=== PATIENT | male | born 1955 | race Caucasian/White ===

== ENCOUNTER 2017-06-10 23:18 | Emergency (ER) | payer BC ==
[2013-09-08 08:21] VITALS: BMI 25.8
[~2017-06-10 23:18] MED LIST: BAYER CHEWABLE81 MG PO; COZAAR100 MG PO; PROSCAR5 MG PO
[2017-06-11 00:20] LABS: BASOPHILS 0.4 % (0-2); EOSINOPHILS 3.9 % (0-7); HEMATOCRIT 41.5 % (42.0-54.0); HEMOGLOBIN 14.2 g/dL (13.5-17.5); IMMATURE GRANULOCYTES 0.5 % (0-5); LYMPHOCYTES 14.9 % (15-50); MCH 31.1 pg (26.0-34.0); MCHC 34.2 g/dL (31.0-37.0); MCV 90.8 fL (80.0-100.0); MONOCYTES 8.6 % (2-11); NEUTROPHILS 71.7 % (40-80); PLATELET COUNT 278 10x3/uL (130-400); RBC 4.57 10x6/uL (4.20-6.10); RDW 13.2 % (11.5-14.5); WBC 9.8 10x3/uL (4.8-10.8)
[2017-06-11 00:45] LABS: ALBUMIN 3.6 g/dL (3.4-5.0); ALKALINE PHOSPHATASE 65 U/L (46-116); ALT (SGPT) 21 U/L (10-68); CALC OSMOLALITY 284 mosm/kg (275-300); CALCIUM 9.9 mg/dL (8.5-10.1); CHLORIDE - SERUM 106 mmol/L (98-107); CREATININE - SERUM 0.8 mg/dL (0.6-1.3); GLUCOSE 104 mg/dL (74-106); POTASSIUM - SERUM 3.9 mmol/L (3.5-5.1); PROTEIN - SERUM 7.1 g/dL (6.4-8.2); SODIUM 142 mmol/L (136-145); UREA NITROGEN 18 mg/dL (7-18); eGFR NON AFRICAN AMERICAN > 90 mL/min (90-120)
[2017-06-11 00:49] LABS: TROPONIN-I < 0.017 ng/mL (0.000-0.060)
[2017-06-11 01:25] LABS: APPEARANCE CLEAR (CLEAR); BILIRUBIN NEGATIVE (NEGATIVE); COLOR YELLOW (YELLOW); GLUCOSE NEGATIVE (NEGATIVE); KETONE NEGATIVE (NEGATIVE); NITRITE NEGATIVE (NEGATIVE); PROTEIN NEGATIVE (NEGATIVE); UROBILINOGEN NORMAL (NORMAL)
[2017-06-11 01:41] LABS: CKMB 0.8 U/L (0.0-3.6); CREATINE KINASE 54 UL (21-232)
== END 2017-06-11 04:10 | disposition home or self-care (01) ==
LOC: D.ER 23:18
PROVIDERS: Family Medicine
DX: R42 Dizziness and giddiness (principal); R07.9 Chest pain, unspecified; I45.10 Unspecified right bundle-branch block

== ENCOUNTER 2018-03-04 17:13 | Observation (INO) | payer BC ==
[~2018-03-04] VITALS: Ht 175.3 cm; Wt 73.6 kg
--- NOTE | ~2018-03-04 | MORECARE ---
CASE MANAGEMENT DISCHARGE SUMMARY PATIENT: MELITON COCHRAN JR UNIT: [id number] ADM DATE: 03/04/18 AGE: 62 : 55 SEX: M ROOM/BED: D.3513 AUTHOR: MUSTAPHA LEAL PHYSICIAN: REFERRING PHYSICIAN: TRACY STILES MD DATE OF SERVICE: 03/06/18 Discharge Plan Patient Name: MELITON COCHRAN [facility] [facility] 1955 Planned Disposition: Home Anticipated Discharge Date: 03/05/18 Discharge Date: 03/05/2018 Expected LOS: 1 Initial Reviewer: [id number] Initial Review Date: 03/06/2018 Generated: 03/06/18 11:11 am Patient Name: MELITON COCHRAN Page [id number] at 1011 All edits/amendments must be made on the electronic document DICTATION DATE: 03/06/18 1010 HOME COMPANION: LEEROY 03/06/18 1010 RPT#: [id number] DC DATE:03/05/18 STATUS: DIS IN [facility] [address] [place] [address] END OF REPORT
--- NOTE | ~2018-03-04 | DS ---
PATIENT:MELITON ARMIJO JR :55 MEDICAL RECORD: [id number] DISCHARGE SUMMARY ADMISSION DATE: 03/04/18 DISCHARGE DATE: 03/05/18 DIAGNOSES: 1. Paroxysmal atrial fibrillation. 2. Hypertension. Mr. Armijo presents with atrial fibrillation. His troponins are normal. EKG is with no ST-T changes. He converted spontaneously to sinus rhythm. He was given sotalol. Previously, he was on losartan for blood pressure. The sotalol was discontinued. He was placed on diltiazem 240 mg a day for heart rate and blood pressure control. He will follow up with [facility] in one month. TRANSINT:[id number] Voice Confirmation ID: [id number] DOCUMENT ID: [id number] TRACY STILES MD CC: [id number] DICTATION DATE: 03/05/18 113 ADVANCED MANUFACTURING ENGINEER: 03/05/182131 DIS IN 03/05/18 [facility] [address] [place] [address]
--- NOTE | ~2018-03-04 | HP ---
PATIENT: MELITON COCHRAN JR MEDICAL RECORD: [id number] ACCOUNT: [id number] LOCATION:[address] : 55 ADMISSION DATE: 03/04/18 PCP: No PCP HISTORY AND PHYSICAL EXAMINATION ADMITTING DIAGNOSES: 1. Paroxysmal atrial fibrillation. 2. Hypertension. HISTORY OF PRESENT ILLNESS: This is a gentleman who presents with palpitations to the Emergency Room and found to be in atrial fibrillation, converted spontaneously to sinus rhythm. He has had 2 other episodes of similar, not any time in the recent past, the last one was approximately a year ago. Each episode he has, lasted for a few hours and this was really no different. He has no chest pain, chest discomfort or shortness of breath with this. PHYSICAL EXAMINATION: GENERAL APPEARANCE: Well-nourished, well-developed, appears stated age. Level of distress, comfortable. PSYCHIATRIC: Mental status, alert, normal affect. Orientation, oriented to time, place and person. EYES: Lids and conjunctiva, noninjected. No discharge, no pallor. ENT: Lips, teeth, gums, normal dentition. Oropharynx, no cyanosis, no pallor. NECK: Carotid arteries, bilateral normal upstroke, no bruits, no thrills. JUGULAR VEINS: No jugular venous pressure or distention. CERVICAL LYMPH NODES: Nontender, nonenlarged. THYROID: Not enlarged. Nontender. No nodules. LUNGS: Respiratory effort, unlabored. CHEST: Normal curvature. No thoracic deformity. No chest wall tenderness. Percussion, resonant. Auscultation, clear. No wheezes, no rales, no rhonchi. CARDIOVASCULAR: Precordial exam, nondisplaced. No heaves or pericardial thrills. Rate and rhythm, regular. Heart sounds, normal S1, normal S2. No S3, no gallop, no rub. Systolic murmur, not heard. Diastolic murmur, not heard. EXTREMITIES: No cyanosis, no edema. Peripheral pulses, full and equal in all extremities, except as noted. No bruits appreciated. ABDOMEN: Soft, nondistended. Normal aorta. No bruit. Nontender. No masses. Liver, nontender, no hepatomegaly. Spleen, nontender, no splenomegaly. MUSCULOSKELETAL: No joint tenderness. No joint swelling. No erythema. NEUROLOGICAL: Normal gait, normal strength, normal tone. SKIN: Warm and dry. OVERALL IMPRESSION: Paroxysmal atrial fibrillation. He is on losartan for blood pressure. He has gotten sotalol. We will most likely discontinue the losartan and change him to diltiazem for blood pressure and the atrial fibrillation. Further workup will be with the stress test as an outpatient. TRANSINT:[id number] Voice Confirmation ID: [id number] DOCUMENT ID: [id number] HISTORY AND PHYSICAL [id number] MELITON COCHRAN JR, JEFFREY MD CC: [id number] DICTATION DATE: 03/05/18 113[address] COMMERCE DIRECTOR: 03/05/18 1144 ADM IN [facility] [address] [place] [id number]
[2018-03-04 17:48] LABS: BASOPHILS 0.5 % (0-2); EOSINOPHILS 4.9 % (0-7); HEMATOCRIT 43.3 % (42.0-54.0); HEMOGLOBIN 15.2 g/dL (13.5-17.5); IMMATURE GRANULOCYTES 0.4 % (0-5); LYMPHOCYTES 20.4 % (15-50); MCH 31.4 pg (26.0-34.0); MCHC 35.1 g/dL (31.0-37.0); MCV 89.5 fL (80.0-100.0); MEAN PLATELET VOLUME 9.1 fL (7.4-10.4); NEUTROPHILS 64.8 % (40-80); PLATELET COUNT 270 10x3/uL (130-400); RBC 4.84 10x6/uL (4.20-6.10); RDW 13.1 % (11.5-14.5); WBC 8.2 10x3/uL (4.8-10.8)
[2018-03-04 17:57] LABS: APTT 32.5 SECONDS (22.8-39.4); INR 0.95 (0.85-1.17); PROTIME 12.2 SECONDS (11.6-15.0)
[2018-03-04 18:02] LABS: ALBUMIN 3.6 g/dL (3.4-5.0); ALKALINE PHOSPHATASE 86 U/L (46-116); ALT (SGPT) 11 U/L (10-68); BILIRUBIN - TOTAL 0.18 mg/dL (0.2-1.3); CALC OSMOLALITY 286 mosm/kg (275-300); CALCIUM 9.9 mg/dL (8.5-10.1); CARBON DIOXIDE 28.1 mmol/L (21.0-32.0); CHLORIDE - SERUM 106 mmol/L (98-107); CREATININE - SERUM 0.7 mg/dL (0.6-1.3); GLUCOSE 101 mg/dL (74-106); POTASSIUM - SERUM 3.7 mmol/L (3.5-5.1); PROTEIN - SERUM 7.4 g/dL (6.4-8.2); SODIUM 143 mmol/L (136-145); UREA NITROGEN 17 mg/dL (7-18); eGFR NON AFRICAN AMERICAN > 90 mL/min (90-120)
[2018-03-04 18:14] LABS: CKMB 0.8 U/L (0.0-3.6); CREATINE KINASE 40 UL (21-232); TROPONIN-I < 0.017 ng/mL (0.000-0.060)
[2018-03-04 20:02] LABS: CREATINE KINASE 40 UL (21-232); TROPONIN-I < 0.017 ng/mL (0.000-0.060)
[2018-03-04] MEDS ORDERED: CALCIUM 600 +1 EAC3 PO (21:52)
[2018-03-04] MEDS ORDERED: PROBIOTIC1 EAC1 PO (21:53)
[2018-03-04] MEDS ORDERED: OMEPRAZOLE20 M1 PO (21:54)
[2018-03-04] MEDS ORDERED: XTANDI40 MG PO (21:54)
[2018-03-04 22:03] VITALS: BP 161/77; Ht 175.3 cm; Wt 73.6 kg
[2018-03-05 01:14] VITALS: BP 161/72
[2018-03-05 01:27] LABS: CKMB 0.6 U/L (0.0-3.6); CREATINE KINASE 30 UL (21-232); TROPONIN-I < 0.017 ng/mL (0.000-0.060)
[2018-03-05 05:42] LABS: HEMATOCRIT 39.8 % (42.0-54.0); HEMOGLOBIN 13.5 g/dL (13.5-17.5); IMMATURE GRANULOCYTES 0.4 % (0-5); LYMPHOCYTES 20.1 % (15-50); MCHC 33.9 g/dL (31.0-37.0); MCV 91.5 fL (80.0-100.0); MEAN PLATELET VOLUME 9.5 fL (7.4-10.4); MONOCYTES 12.4 % (2-11); NEUTROPHILS 59.1 % (40-80); PLATELET COUNT 274 10x3/uL (130-400); RBC 4.35 10x6/uL (4.20-6.10); WBC 7.3 10x3/uL (4.8-10.8)
[2018-03-05 05:54] VITALS: BP 102/63
[2018-03-05 06:36] LABS: ALBUMIN 3.1 g/dL (3.4-5.0); ALKALINE PHOSPHATASE 65 U/L (46-116); ALT (SGPT) 11 U/L (10-68); CALC OSMOLALITY 290 mosm/kg (275-300); CARBON DIOXIDE 26.5 mmol/L (21.0-32.0); CHLORIDE - SERUM 109 mmol/L (98-107); CREATININE - SERUM 0.8 mg/dL (0.6-1.3); GLUCOSE 93 mg/dL (74-106); POTASSIUM - SERUM 3.9 mmol/L (3.5-5.1); PROTEIN - SERUM 6.5 g/dL (6.4-8.2); SODIUM 144 mmol/L (136-145); eGFR NON AFRICAN AMERICAN > 90 mL/min (90-120)
[2018-03-05 06:37] LABS: UREA NITROGEN 25 mg/dL (7-18)
[2018-03-05 08:44] VITALS: BP 115/61
[2018-03-05 09:07] LABS: CKMB 0.9 U/L (0.0-3.6); CREATINE KINASE 25 UL (21-232); TROPONIN-I < 0.017 ng/mL (0.000-0.060)
[2018-03-05] MEDS ORDERED: CARDIZEM CD180 MG PO (12:36)
== END 2018-03-05 13:53 | disposition home or self-care (01) ==
LOC: D.ER 17:13 → D.EDHOLD 19:32 → D.M2 19:32 → OBSVTIME 19:33 → D.M2 19:48
PROVIDERS: Family Medicine
DX: I48.0 Paroxysmal atrial fibrillation (principal); I10 Essential (primary) hypertension

== ENCOUNTER 2018-03-10 11:12 | Emergency (ER) | payer BC ==
[~2018-03-10] VITALS: Ht 175.3 cm; Wt 74.1 kg
--- NOTE | ~2018-03-10 | CN ---
PATIENT NAME:MELITON ARMIJO JR MEDICAL RECORD: [id number] : 55 LOCATION:.ER ADMIT DATE: ACCOUNT: [id number] CONSULTING PHYSICIAN: TRACY STILES MD REFERRING PHYSICIAN: JANET FREEDMAN MD DATE OF CONSULTATION: 03/10/2018 DIAGNOSES: 1. Angina. 2. Paroxysmal atrial fibrillation. 3. Hypertension. HISTORY OF PRESENT ILLNESS: Mr. Armijo is a 62-year-old gentleman who presented last week with an episode of atrial fibrillation. He spontaneously converted to sinus rhythm. At that time, he was not having episodes of chest pain. His troponins were normal. He was switched from his losartan that he was previously taking for blood pressure to Diltiazem 180 mg every day. He now has begun having some episodes of chest pain and chest pressure. His systolic blood pressure has been in the 150-170 range. He has no acute changes on his EKG. PHYSICAL EXAMINATION: GENERAL APPEARANCE: Well-nourished, well-developed, appears stated age. Level of distress, comfortable. PSYCHIATRIC: Mental status, alert, normal affect. Orientation, oriented to time, place and person. EYES: Lids and conjunctiva, noninjected. No discharge, no pallor. ENT: Lips, teeth, gums, normal dentition. Oropharynx, no cyanosis, no pallor. NECK: Carotid arteries, bilateral normal upstroke, no bruits, no thrills. JUGULAR VEINS: No jugular venous pressure or distention. CERVICAL LYMPH NODES: Nontender, nonenlarged. THYROID: Not enlarged. Nontender. No nodules. LUNGS: Respiratory effort, unlabored. CHEST: Normal curvature. No thoracic deformity. No chest wall tenderness. Percussion, resonant. Auscultation, clear. No wheezes, no rales, no rhonchi. CARDIOVASCULAR: Precordial exam, nondisplaced. No heaves or pericardial thrills. Rate and rhythm, regular. Heart sounds, normal S1, normal S2. No S3, no gallop, no rub. Systolic murmur, not heard. Diastolic murmur, not heard. EXTREMITIES: No cyanosis, no edema. Peripheral pulses, full and equal in all extremities, except as noted. No bruits appreciated. ABDOMEN: Soft, nondistended. Normal aorta. No bruit. Nontender. No masses. Liver, nontender, no hepatomegaly. Spleen, nontender, no splenomegaly. MUSCULOSKELETAL: No joint tenderness. No joint swelling. No erythema. NEUROLOGICAL: Normal gait, normal strength, normal tone. SKIN: Warm and dry. OVERALL IMPRESSION: He was set for nuclear stress testing. We will re-add his losartan to his Cardizem and proceed with coronary angiography in the near future. Further care depends upon findings of the angiography. TRANSINT:[id number] Voice Confirmation ID: [id number] DOCUMENT ID: [id number] CONSULT REPORT [id number] MELITON ARMIJO JR, JEFFREY MD at 1457 CC: [id number] DICTATION DATE: 03/10/18 1221 SECOND FACING BASTER: 03/10/18 1251 DEP ER 03/10/18 [place] [id number] [place] [address]
[~2018-03-10 11:12] MED LIST changes: +CALCIUM 600 +1 EAC3 PO; +CARDIZEM CD180 MG PO; +OMEPRAZOLE20 M1 PO; +PROBIOTIC1 EAC1 PO; +XTANDI40 MG PO
[2018-03-10 11:19] VITALS: Ht 175.3 cm; Wt 74.1 kg
[2018-03-10 11:39] LABS: BASOPHILS 0.5 % (0-2); EOSINOPHILS 4.6 % (0-7); HEMATOCRIT 42.1 % (42.0-54.0); HEMOGLOBIN 14.6 g/dL (13.5-17.5); IMMATURE GRANULOCYTES 0.4 % (0-5); LYMPHOCYTES 19.7 % (15-50); MCH 31.5 pg (26.0-34.0); MCHC 34.7 g/dL (31.0-37.0); MCV 90.7 fL (80.0-100.0); MEAN PLATELET VOLUME 9.1 fL (7.4-10.4); MONOCYTES 7.3 % (2-11); NEUTROPHILS 67.5 % (40-80); PLATELET COUNT 277 10x3/uL (130-400); RBC 4.64 10x6/uL (4.20-6.10); RDW 12.9 % (11.5-14.5); WBC 7.8 10x3/uL (4.8-10.8)
[2018-03-10 11:52] LABS: ALBUMIN 3.7 g/dL (3.4-5.0); ALKALINE PHOSPHATASE 69 U/L (46-116); ALT (SGPT) 11 U/L (10-68); BILIRUBIN - TOTAL 0.21 mg/dL (0.2-1.3); CALC OSMOLALITY 286 mosm/kg (275-300); CALCIUM 9.3 mg/dL (8.5-10.1); CARBON DIOXIDE 24.3 mmol/L (21.0-32.0); CHLORIDE - SERUM 108 mmol/L (98-107); CREATININE - SERUM 0.7 mg/dL (0.6-1.3); GLUCOSE 109 mg/dL (74-106); PROTEIN - SERUM 7.4 g/dL (6.4-8.2); SODIUM 143 mmol/L (136-145); UREA NITROGEN 16 mg/dL (7-18); eGFR NON AFRICAN AMERICAN > 90 mL/min (90-120)
[2018-03-10 12:01] LABS: CKMB 0.6 U/L (0.0-3.6); CREATINE KINASE 47 UL (21-232); PRO BNP 128 pg/mL (0-125); TROPONIN-I < 0.017 ng/mL (0.000-0.060)
[2018-03-10 12:51] VITALS: BP 159/083
== END 2018-03-10 12:52 | disposition home or self-care (01) ==
LOC: D.ER 11:12
PROVIDERS: Family Medicine
DX: I10 Essential (primary) hypertension (principal); R07.9 Chest pain, unspecified; I25.10 Atherosclerotic heart disease of native coronary artery without angina pectoris; Z85.46 Personal history of malignant neoplasm of prostate; I45.10 Unspecified right bundle-branch block

== ENCOUNTER 2018-03-12 08:57 | Outpatient (CLI) | payer BC ==
[~2018-03-12] VITALS: Ht 175.3 cm; Wt 75.0 kg
--- NOTE | ~2018-03-12 | HEMODYNAMI ---
PATIENT:MELITON COCHRAN JR MEDICAL RECORD: [id number] : 55 LOCATION:[place] ADMISSION DATE: 03/12/18 Generatedon:03/12/201810:58 Patient name: MELITON COCHRAN Patient #: [id number] SSN: : Date of study: 03/12/2018 Page: Of Hemodynamic Procedure Report Patient Data Patient Demographics Procedure consent was obtained First Name: MELITON Gender: Male Last Name: SAMMIE Suffix: Jr Farmer Initial: JESENIA : 1955 Patient #: [id number] Age: 62 year(s) Race: Unknown Additional ID: [id number] Contact details [address]: [address] [place] [address] State: [place] City: [place] Zip code: [address] Past Medical History Allergies Allergen Reaction Date Comments Reported Other allergy 03/12/2018 AMLODIPINE, ENALAPRIL Admission Admission Data Admission Date: 03/12/2018 Admission Time: 8:57 Weight (lbs.): 165.35 Weight (kg.): 75 Lab Results Lab Result Date: 03/12/2018 Lab Result Time: 0:00 Biochemistry Name Units Result Min Max BUN mg/dl 17 --(---*)-- 7 18 Creatinine mg/dl 0.7 --(*---)-- 0.6 1.3 CBC Name Units Result Min Max Hemoglobin g/dl 13.9 --(*---)-- 13.5 17.5 Procedure Procedure Types Cath Procedure Diagnostic Procedure LHC LHC w/Coronaries FFR/IVUS Intra-Coronary IVUS Initial PCI Procedure Coronary Stent Coronary Stent Initial Procedure Description Procedure Date Procedure Date: 03/12/2018 Procedure Start Time: 10:40 Procedure End Time: 10:56 Procedure Staff Name Function Getachew Dsouza MD Performing Physician Raad Santana RT Monitor Ly Major RT Scrub Ruddy Guerin RN Nurse Procedure Data Cath Procedure Fluoroscopy Diagnostic fluoroscopy Total fluoroscopy Time: 3.4 time: 3.4 min min Diagnostic fluoroscopy Total fluoroscopy dose: 270 dose: 270 mGy mGy Contrast Material Contrast Material Type Amount (ml) Isovue 300 75 Entry Location Entry Primary Successful Side Size Upsize Upsize Entry Closure Ayala ccessful Closure Location (Fr) 1 (Fr) 2 (Fr) Remarks Device Remarks Radial Right 6 Fr Mechanical artery Short Compression Estimated blood loss: 10 ml Diagnostic catheters Device Type Used For End Catheter Placement DIAGNOSTIC Portal 110cm 5 Procedure Fr catheter ([id number]) Procedure Complications No complications Procedure Medications Medication Administration Route Dosage Oxygen etCO2 Nasal cannula 2 l/min Heparin Flush Bag added to field 2 bags (1000units/500ml NS) 0.9% NaCl I.V. 100 ml/hr Lidocaine 2% added to field 20 Radial Cocktail added to field 1 syringe (Verapomil 2mg/Nitro 400mcg/Heparin 1500units) Fentanyl I.V. 50 mcg Versed I.V. 1 mg Radial Cocktail I.A. 1 syringe (Verapomil 2mg/Nitro 400mcg/Heparin 1500units) Fentanyl I.V. 50 mcg Heparin Bolus I.V. 4000 units Integrilin (Bolus I.V. 6.8 ml 2mg/ml) Integrilin (Bolus wasted 3.2 ml 2mg/ml) Plavix P.O. 600 mg Hemodynamics Rest Heart Rate: 58 (bpm) Pressure Samples Time Site Value (mmHg) Purpose Heart Use Rate(bpm) 10:43 AO 125/80(100) Snapshot 66 Snapshots Pre Cath Intra NCS Post Cath Vital Signs Time Heart Resp SPO2 etCO2 NIBP (mmHg) Rhythm Pain Sedation Rate (ipm) (%) (mmHg) Status Level (bpm) 10:30:53 59 17 94 0 147/83(127) NSR 0 (11) 10(A) , No pain 10:35:05 62 17 93 34.7 147/89(127) NSR 0 (11) 10(A) , No pain 10:39:18 60 16 92 24.8 140/75(121) NSR 0 (11) 10(A) , No pain 10:43:32 68 17 89 0 121/68(101) NSR 0 (11) 9(A) , No pain 10:47:48 66 16 91 33.9 124/70(96) NSR 0 (11) 9(A) , No pain 10:52:01 66 16 91 30.1 124/66(103) NSR 0 (11) 9(A) , No pain 10:55:31 64 17 93 21.1 118/70(102) NSR 0 (11) 9(A) , No pain Medications Time Medication Route Dose Verified Delivered Reason Not es Effectiveness by by 10:29:05 Oxygen etCO2 2 l/min Getachew Fox Per physician Nasal Lianna Guerin RN cannula 10:29:14 Heparin Flush added 2 bags Getachew Fox used for Bag to Lianna Guerin RN procedure (1000units/500ml field NS) 10:29:25 0.9% NaCl I.V. 100 Getachew Fox Per physician ml/hr Lianna Guerin RN 10:29:36 Lidocaine 2% added 20ml Getachew Fox used for to vial Lianna Guerin RN procedure field 10:29:44 Radial Cocktail added 1 Getachew Fox used for (Verapomil to syringe Lianna Guerin RN procedure 2mg/Nitro field 400mcg/Heparin 1500units) 10:39:43 Fentanyl I.V. 50 mcg Getachew Fox for sedation Lianna Guerin RN 10:39:50 Versed I.V. 1 mg Getachew Fox for sedation Lianna Guerin RN 10:41:21 Radial Cocktail I.A. 1 Getachew Chilel for (Verapomil syringe Lianna Dsouza MD vasodilation 2mg/Nitro 400mcg/Heparin 1500units) 10:41:29 Fentanyl I.V. 50 mcg Getachew Fox for sedation Lianna Guerin RN 10:46:54 Heparin Bolus I.V. 4000 Getachew Fox for units Lianna Guerin RN anticoagulation 10:52:04 Integrilin I.V. 6.8 ml Getachew Fox for (Bolus 2mg/ml) Lianna Guerin RN antiplatelet therapy 10:52:22 Integrilin wasted 3.2 ml Getachew Fox for (Bolus 2mg/ml) Lianna Guerin RN antiplatelet therapy 10:57:12 Plavix P.O. 600 mg Getachew Fox for Lianna Guerin RN antiplatelet therapy Procedure Log Time Note 9:36:27 Signed procedure consent form obtained from patient. 9:36:29 Diagnostic Cath status Elective 9:36:30 Time tracking: Regular hours (M-F 7:00 - 5:00) 9:36:35 Plan of Care:Hemodynamics will remain stable., Cardiac rhythm will remain stable., Comfort level will be maintained., Respiratory function will remain adequate., Patient/ family verbilizes understanding of procedure., Procedure tolerated without complication., Recovers from procedure without complications.. 10:00:57 Patient allergic to Other allergyAMLODIPINE, ENALAPRIL 10:02:49 Lab Result : BUN 17 mg/dl 10::49 Lab Result : Creatinine 0.7 mg/dl 10::49 Lab Result : Hemoglobin 13.9 g/dl 10:12:42 Ly Major RT(R) sent for patient. Start room use. 10:17:56 Patient received from Pre/Post Procedure Room to CCL 3 Alert and oriented. Tansferred to table in Supine position. 10:17:58 Warm blankets applied, and zain hugger turned on for patient comfort. 10:17:58 Correct patient and procedure confirmed by team. 10:17:59 ECG and BP/O2 sat monitors applied to patient. 10:29:05 Oxygen 2 l/min etCO2 Nasal cannula was administered by Ruddy Guerin RN; Per physician; 10:29:14 Heparin Flush Bag (1000units/500ml NS) 2 bags added to field was administered by Ruddy Guerin RN; used for procedure; 10:29:25 0.9% NaCl 100 ml/hr I.V. was administered by Ruddy Guerin RN; Per physician; 10:29:36 Lidocaine 2% 20ml vial added to field was administered by Ruddy Guerin RN; used for procedure; 10:29:44 Radial Cocktail (Verapomil 2mg/Nitro 400mcg/Heparin 1500units) 1 syringe added to field was administered by Ruddy Guerin RN; used for procedure; 10:29:46 Vital chart was started 10:29:51 Baseline sample Acquired. 10:30:37 Rhythm: sinus bradycardia 10:30:38 Full Disclosure recording started 10:30:48 H&P Date Dictated: 03/12/2018 H&P Addendum completed by physician on day of procedure. (MUST COMPLETE FOR ALL OUTPATIENTS). 10:30:49 Pre-procedure instructions explained to patient. 10:30:50 Pre-op teaching completed and patient verbalized understanding. 10:30:53 Family in patients room. 10:30:54 Patient NPO since Midnight. 10:30:57 Is the patient allergic to Iodine/contrast media? No. 10:31:11 Is patient on blood thinner?No 10:31:13 Patient diabetic? No. 10:31:16 Previous problem with sedation/anesthesia? No ? 10:31:17 Snore? Yes 10:31:18 Sleep apnea? No 10:31:19 Deviated septum? No 10:31:20 Opens mouth fully? Yes 10:31:20 Sticks out tongue? Yes 10:31:27 Airway obstruction? No ? 10:31:29 Dentures? No ? 10:31:32 Pre procedure: right dorsailis pedis pulse 1+ Palpable, but thready & weak; easily obliterated 10:31:35 Modified Bassam's test Ulnar < 7 seconds 10:31:37 Patient pain scale 0/10 ?. 10:34:54 IV patent on arrival in left forearm with 0.9% NaCl at O. 10:34:56 Lab results completed and on chart. 10:35:00 Right Radial & Right Groin area was prepped with chlora-prep and draped in sterile fashion 10:35:01 Alarms reviewed by R. N. 10:35:02 Sharps counted by scrub and verified by R.N. 10:35:06 Use device set Radial Dx or PCI 10:35:10 Tegaderm 4 x 4 (1626W) opened to sterile field. 10:35:11 ACIST Manifold (61498) opened to sterile field. 10:35:11 ACIST Hand Control (36481) opened to sterile field. 10:35:12 ACIST Syringe (63635) opened to sterile field. 10:35:13 Medline Cath Pack ([id number]) opened to sterile field. 10:35:13 Bag Decanter () opened to sterile field. 10:35:13 DIAGNOSTIC WIRE .035 260cm J wire (506790) opened to sterile field. 10:35:14 MBrace Wrist Support ([id number]) opened to sterile field. 10:35:16 SHEATH 6FR Slender (801060) opened to sterile field. 10:35:46 --------ALL STOP TIME OUT------ 10:35:47 Final Timeout: patient, procedure, and site verified with staff and physician. All members of the team are in agreement. 10:35:50 Right Radial & Right Groin site verified by team. 10:35:52 Physical assessment completed. ASA score P 2 - A patient with mild systemic disease as per Getachew Dsouza MD. 10:35:55 Sedation plan: IV Moderate Sedation Medication:Versed, Fentanyl 10:39:43 Fentanyl 50 mcg I.V. was administered by Ruddy Guerin RN; for sedation; 10:39:50 Versed 1 mg I.V. was administered by Ruddy Guerin RN; for sedation; 10:39:59 Procedure started. 10:40:04 Local anesthetic to right radial artery with Lidocaine 2% by Getachew Dsouza MD.INITIAL ACCESS ONLY 10:40:22 A 6 Fr Short sheath was inserted into the Right Radial artery 10:40:56 Patient Weight : 165.35 lbs 10:41:21 Radial Cocktail (Verapomil 2mg/Nitro 400mcg/Heparin 1500units) 1 syringe I.A. was administered by Getachew Dsuoza MD; for vasodilation; 10:41:29 Fentanyl 50 mcg I.V. was administered by Ruddy Guerin RN; for sedation; 10:41:29 A DIAGNOSTIC Portal 110cm 5 Fr catheter (549223) was advanced over the wire and used for Procedure. 10:41:55 LV angiography performed. 10:41:57 LV gram done using MEDINA 10:42:13 EF : 60 % 10:42:24 Injector settings: Ml/sec: 7, Volume: 15, 10:42:48 LCA angiography performed. 10:43:07 RCA angiography performed. 10:43:58 Catheter exchanged over wire. 10:44:48 Use device set [facility] PCI 10:44:59 INFLATOR Merit BasixCompak (BS1199) opened to sterile field. 10:45:02 CHOICE PT Extra Support 182cm wire ([id number]) opened to sterile field. 10:45:12 [place]ag[place] IVUS Catheter (93711Z) opened to sterile field. 10:45:40 GUIDE 6FR AR 2.0 SH catheter ([id number]) opened to sterile field. 10:46:08 6 Fr AR 2 SH guide catheter was inserted over the wire 10:46:38 CPTXS wire advanced. 10:46:54 Heparin Bolus 4000 units I.V. was administered by Ruddy Guerin RN; for anticoagulation; 10:47:18 Wire advanced across lesion. 10:47:23 IVUS catheter advanced over wire. 10:48:01 IVUS pass to RCA lesion performed. 10:48:31 IVUS catheter removed over wire. 10:51:28 Place stent Inflation Number: 1 A SHASHANK RX 3.0 x 30 stent ([id number]) was prepped and advanced across the Mid RCA. The stent was deployed at 13 STEVEN for 0:10 (min:sec). 10:52:01 TR BAND Standard ([id number]) opened to sterile field. 10:52:04 Integrilin (Bolus 2mg/ml) 6.8 ml I.V. was administered by Ruddy Guerin RN; for antiplatelet therapy; 10:52:08 Stent catheter was removed intact over wire. 10:52:09 Wire removed. 10:52:09 Guide catheter removed. 10:52:22 Integrilin (Bolus 2mg/ml) 3.2 ml wasted was administered by Ruddy Guerin RN; for antiplatelet therapy; 10:53:30 Sheath removed intact; hemostasis achieved with Mechanical Compression to the Right Radial artery. 10:53:32 Procedure ended.(Physican Out) 10:54:55 Fluoroscopy time 03.40 minutes. 10:54:59 Fluoroscopy dose: 270 mGy 10:54:59 Flurop Dose total: 270 10:55:03 Contrast amount:Isovue 300 75ml. 10:55:05 Sharps counted by scrub and verified by R.N. 10:55:07 Insertion/operative site no bleeding no hematoma. 10:55:20 TR band inflated with 11cc of air. 10:55:22 Post Procedure Pulses reassessed and unchanged 10:55:25 Post-procedure physical assessment completed. ASA score P 2 - A patient with mild systemic disease as per Getachew Dsouza MD. 10:55:27 Post procedure rhythm: unchanged. 10:55:29 Estimated blood loss: 10 ml 10:55:31 Post procedure instruction explained to patient.Patient verbalizes understanding. 10:55:32 Patient needs reinforcement of post procedure teaching. 10:55:44 Procedure type changed to Cath procedure, Diagnostic procedure, LHC, [facility] w/Coronaries, FFR/IVUS, Intra-Coronary IVUS Initial, PCI procedure, Coronary Stent, Coronary Stent Initial 10:55:45 Procedure and supply charges have been captured, reviewed, submitted and are correct. 10:55:48 Procedure Complication : No complications 10:56:18 Vital chart was stopped 10:56:18 See physician's report for complete and final results. 10:56:21 Report given to Pre/Post Procedure Room. 10:56:23 Patient transfered to Pre/Post Procedure Room with Stretcher. 10:56:25 Procedure ended. 10:56:25 Full Disclosure recording stopped 10:57:12 Plavix 600 mg P.O. was administered by Ruddy Guerin RN; for antiplatelet therapy; 10:58:15 End room use (Document Last) Intervention Summary Intervention Notes Time ActionType Lesion and Equipment Used Action# Pressure Duration Attributes 10:51:28 Place stent Mid RCA SHASHANK RX 3.0 x 1 13 00:10 30 stent ([id number]) Device Usage Item Name Manufacture Quantity Catalog Number Hospital Part Current M inimal Lot# / Charge Number Stock Stock Serial# Code Tegaderm 4 x 4 3M 1 [id number] 109271 643823 125058 5 (1626W) ACIST Manifold Acist 1 99709 649165 359376 978205 5 (85268) Medical Systems Inc ACIST Hand Acist 1 88617 335952 255521 158732 5 Control Medical (79943) Systems Inc ACIST Syringe Acist 1 24158 883134 702775 065184 2 0 (28311) Medical Systems Inc Medline Cath Medline 1 [id number] 735198 53237 279908 5 Pack ([id number]) Bag Decanter Microtek 1 2001S 478190 04166 733499 5 (2001S) Medical Inc. DIAGNOSTIC [facility] [place] 1 791839 674876 676070 885484 3 0 WIRE .035 260cm J wire (881233) MBrace Wrist Advanced 1 140-0250-00 200311 59625 925465 5 Support Vascular (794531421) Dynamics SHEATH 6FR Terumo 1 [id number] 295669 086349 885619 5 Slender (80-1060) DIAGNOSTIC Terumo 1 40-4927 652789 781157 922446 5 Portal 110cm 5 Fr catheter (204323) INFLATOR Merit Merit 1 [id number] 521454 233906 347584 1 5 [facility] Medical (TG8371) CHOICE PT [place] 1 [id number] 586205 087977 950610 5 Extra Support Scientific 182cm wire ([id number]) [place] 1 80166P 306056 779418 459507 8 [place] E[place] IVUS Catheter (87601K) GUIDE 6FR AR Medtronic 1 [id number] 927057 56194 162028 1 2.0 SH catheter ([id number]) SHASHANK RX 3.0 x Medtronic 1 [id number] 995049 1609795 445037 5 [id number] 30 stent ([id number]) TR BAND Terumo 1 [id number] 443881 762557 193562 4 0 Standard ([id number]) Signature Audit [place] Stage Time Signature Unsigned Intra-Procedure 03/12/2018 Raad Santana 10:58:30 AM RT(R) Signatures Monitor : Raad Santana RT Signature : Date : Time : [place] [address] [place] [address]
[2018-03-12] MEDS ORDERED: BETAPACE 80 MG80 MG PO (09:24)
[2018-03-12 09:32] VITALS: BP 139/72; Ht 175.3 cm; Wt 75.0 kg
[2018-03-12 09:48] LABS: BASOPHILS 0.8 % (0-2); EOSINOPHILS 4.2 % (0-7); HEMOGLOBIN 13.9 g/dL (13.5-17.5); IMMATURE GRANULOCYTES 0.4 % (0-5); LYMPHOCYTES 15.3 % (15-50); MCH 31.3 pg (26.0-34.0); MCHC 34.8 g/dL (31.0-37.0); MCV 90.1 fL (80.0-100.0); NEUTROPHILS 69.3 % (40-80); PLATELET COUNT 276 10x3/uL (130-400); RBC 4.44 10x6/uL (4.20-6.10); RDW 12.9 % (11.5-14.5); WBC 7.3 10x3/uL (4.8-10.8)
[2018-03-12 09:59] LABS: CALC OSMOLALITY 283 mosm/kg (275-300); CALCIUM 8.6 mg/dL (8.5-10.1); CARBON DIOXIDE 25.5 mmol/L (21.0-32.0); CHLORIDE - SERUM 106 mmol/L (98-107); CREATININE - SERUM 0.7 mg/dL (0.6-1.3); GLUCOSE 87 mg/dL (74-106); SODIUM 142 mmol/L (136-145); UREA NITROGEN 17 mg/dL (7-18); eGFR NON AFRICAN AMERICAN > 90 mL/min (90-120)
[2018-03-12] MEDS ORDERED: LOSARTAN-HCTZ1 EAC2 PO (10:34)
[2018-03-12] MEDS ORDERED: PLAVIX75 MG PO (11:23)
[2018-03-12] MEDS ORDERED: BAYER CHEWABLE81 MG PO (11:23)
--- NOTE | 2018-03-13 14:57 | OP ---
PATIENT NAME: MELITON COCHRAN JR MEDICAL RECORD: [id number] :55 LOCATION:D.CAT ADMISSION DATE: SURGEON: TRACY STILES MD DATE OF OPERATION: 03/12/2018 PROCEDURES: 1. PTCA and stent, RCA. 2. Intravascular ultrasound. 3. Left heart catheterization. 4. Selective coronary angiography. 5. Left ventriculogram. INDICATION: Angina and coronary artery disease. PROCEDURE IN DETAIL: After informed consent was obtained with detailed description of risks and benefits as well as alternative therapies, the patient elected to proceed with angiogram and angioplasty. The right radial area was prepped and draped in normal sterile fashion. Right radial artery was cannulated via modified Seldinger technique with placement of 6-Marshallese sheath. All catheters were exchanged through this sheath. FINDINGS: The left ventriculogram performed in standard 30-degree MEDINA view reveals good cardiac wall motion throughout all segments. Overall ejection fraction estimated at 70%. SELECTIVE CORONARY ANGIOGRAPHY: 1. Left main is with no significant angiographic disease. 2. Left anterior descending has a questionable stenosis in the mid vessel. This is possibly significant, better delineated by intravascular ultrasound. 3. Left circumflex has at least 70% stenosis in the mid vessel. 4. Right coronary has 77% stenosis, confirmed by intravascular ultrasound. PTCA AND STENT OF THE RCA: Stent used was 3.0 x 30-mm Buck. Result was 0% residual stenosis. OVERALL IMPRESSION: Successful PTCA and stent of the RCA, going from 77% initial stenosis to 0% residual stenosis. PLAN: PTCA and stent of circumflex and possible LAD in the near future. TRANSINT:[id number] Voice Confirmation ID: [id number] DOCUMENT ID: [id number] TRACY STILES MD at 1457 CC: [id number] DICTATION DATE: 03/12/18 1100 SIGN LANGUAGE TRANSLATOR: 03/12/18 1140 DEP CLI 03/12/18 [address] [address] [place] [address]
== END 2018-03-12 15:30 ==
LOC: D.CATH 08:57
PROVIDERS: Internal Medicine Interventional Cardiology
DX: I25.119 Atherosclerotic heart disease of native coronary artery with unspecified angina pectoris (principal); I10 Essential (primary) hypertension; Z01.812 Encounter for preprocedural laboratory examination

== ENCOUNTER 2018-03-14 09:06 | Outpatient (CLI) | payer BC ==
--- NOTE | 2018-03-13 14:57 | HP ---
PATIENT: MELITON COCHRAN JR MEDICAL RECORD: [id number] ACCOUNT: [id number] LOCATION:DILEEP : 55 ADMISSION DATE: 03/14/18 PCP: HISTORY AND PHYSICAL EXAMINATION ADMITTING DIAGNOSES: 1. Angina. 2. Coronary artery disease. 3. Recent percutaneous transluminal coronary angioplasty stent of the right coronary artery with concomitant disease of left anterior descending and circumflex. HISTORY OF PRESENT ILLNESS: This is a gentleman who presents with anginal symptomatology, found to have 3-vessel coronary artery disease, underwent successful PTCA stent of the RCA. He is now brought back for intravascular ultrasound of the LAD as well as PTCA stent of the left circumflex. PHYSICAL EXAMINATION: GENERAL APPEARANCE: Well-nourished, well-developed, appears stated age. Level of distress, comfortable. PSYCHIATRIC: Mental status, alert, normal affect. Orientation, oriented to time, place and person. EYES: Lids and conjunctiva, noninjected. No discharge, no pallor. ENT: Lips, teeth, gums, normal dentition. Oropharynx, no cyanosis, no pallor. NECK: Carotid arteries, bilateral normal upstroke, no bruits, no thrills. JUGULAR VEINS: No jugular venous pressure or distention. CERVICAL LYMPH NODES: Nontender, nonenlarged. THYROID: Not enlarged. Nontender. No nodules. LUNGS: Respiratory effort, unlabored. CHEST: Normal curvature. No thoracic deformity. No chest wall tenderness. Percussion, resonant. Auscultation, clear. No wheezes, no rales, no rhonchi. CARDIOVASCULAR: Precordial exam, nondisplaced. No heaves or pericardial thrills. Rate and rhythm, regular. Heart sounds, normal S1, normal S2. No S3, no gallop, no rub. Systolic murmur, not heard. Diastolic murmur, not heard. EXTREMITIES: No cyanosis, no edema. Peripheral pulses, full and equal in all extremities, except as noted. No bruits appreciated. ABDOMEN: Soft, nondistended. Normal aorta. No bruit. Nontender. No masses. Liver, nontender, no hepatomegaly. Spleen, nontender, no splenomegaly. MUSCULOSKELETAL: No joint tenderness. No joint swelling. No erythema. NEUROLOGICAL: Normal gait, normal strength, normal tone. SKIN: Warm and dry. OVERALL IMPRESSION: Anginal symptomatology. We will proceed with transcatheter revascularization of the circumflex and intravascular ultrasound of the left anterior descending. TRANSINT:[id number] Voice Confirmation ID: [id number] DOCUMENT ID: [id number] HISTORY AND PHYSICAL [id number] MELITON COCHRAN JR, JEFFREY MD at 1457 CC: [id number] DICTATION DATE: 03/13/18 1252 BROKERAGE BRANCH MANAGER: 03/13/18 1328 PRE [facility] [address] [place] [address]
[~2018-03-14] VITALS: Ht 175.3 cm; Wt 74.1 kg
--- NOTE | ~2018-03-14 | HEMODYNAMI ---
PATIENT:MELITON COCHRAN JR MEDICAL RECORD: [id number] : 55 LOCATION:[facility] ADMISSION DATE: 03/14/18 Generatedon:03/14/201815:11 Patient name: MELITON COCHRAN Patient #: [id number] SSN: : Date of study: 03/14/2018 Page: Of Hemodynamic Procedure Report Patient Data Patient Demographics Procedure consent was obtained First Name: MELITON Gender: Male Last Name: SAMMIE Suffix: [facility] Initial: JESENIA : 1955 Patient #: [id number] Age: 62 year(s) Race: Unknown Additional ID: [id number] Contact details [address]: [address] [place] [address] State: [place] City: [place] Zip code: [address] Past Medical History Allergies Allergen Reaction Date Comments Reported Other allergy 03/12/2018 AMLODIPINE, ENALAPRIL Admission Admission Data Admission Date: 03/14/2018 Admission Time: 9:06 Lab Results Lab Result Date: 03/12/2018 Lab Result Time: 0:00 Biochemistry Name Units Result Min Max BUN mg/dl 17 --(---*)-- 7 18 Creatinine mg/dl 0.7 --(*---)-- 0.6 1.3 CBC Name Units Result Min Max Hemoglobin g/dl 13.9 --(*---)-- 13.5 17.5 Procedure Procedure Types Cath Procedure Diagnostic Procedure FFR/IVUS Intra-Coronary IVUS Initial PCI Procedure Coronary Stent Coronary Stent Initial Procedure Description Procedure Date Procedure Date: 03/14/2018 Procedure Start Time: 14:53 Procedure End Time: 15:06 Procedure Staff Name Function Getachew Dsouza MD Performing Physician Ivis Mauricio RT Monitor Rody Renteria RT Scrub Robert Turner RN Nurse Procedure Data Cath Procedure Fluoroscopy Diagnostic fluoroscopy Total fluoroscopy Time: 3.7 time: 3.7 min min Diagnostic fluoroscopy Total fluoroscopy dose: 620 dose: 620 mGy mGy Contrast Material Contrast Material Type Amount (ml) Isovue 300 82 Entry Location Entry Primary Successful Side Size Upsize Upsize Entry Closure Ayala ccessful Closure Location (Fr) 1 (Fr) 2 (Fr) Remarks Device Remarks Radial Right 6 Fr Mechanical artery Short Compression Estimated blood loss: 5 ml Procedure Complications No complications Procedure Medications Medication Administration Route Dosage Oxygen etCO2 Nasal cannula 2 l/min Lidocaine 2% added to field 20 Heparin Flush Bag added to field 2 bags (1000units/500ml NS) 0.9% NaCl I.V. 100 ml/hr Radial Cocktail added to field 1 syringe (Verapomil 2mg/Nitro 400mcg/Heparin 1500units) Heparin Bolus I.V. 4000 units Versed I.V. 2 mg Fentanyl I.V. 100 mcg Versed I.V. 1 mg Fentanyl I.V. 50 mcg Versed I.V. 1 mg Fentanyl I.V. 50 mcg Hemodynamics Rest HGB: 13.9 (g/dl) Heart Rate: 64 (bpm) Snapshots Pre Cath Intra NCS Post Cath Vital Signs Time Heart Resp SPO2 etCO2 NIBP (mmHg) Rhythm Pain Sedation Rate (ipm) (%) (mmHg) Status Level (bpm) 14:36:12 58 14 100 30.1 136/81(119) NSR 0 (11) 10(A) , No pain 14:40:29 63 14 98 30 123/67(98) NSR 0 (11) 10(A) , No pain 14:44:38 62 15 97 0 120/71(97) NSR 0 (11) 10(A) , No pain 14:48:46 58 15 98 0 121/70(95) NSR 0 (11) 10(A) , No pain 14:52:54 62 19 97 36.8 115/71(97) NSR 0 (11) 10(A) , No pain 14:57:02 61 16 96 0 115/64(92) NSR 0 (11) 9(A) , No pain 15:01:12 63 14 96 0 116/59(77) NSR 0 (11) 9(A) , No pain 15:05:22 65 15 98 35.3 120/63(104) NSR 0 (11) 9(A) , No pain 15:10:23 64 17 97 27.8 122/65(102) NSR 0 (11) 10(A) , No pain Medications Time Medication Route Dose Verified Delivered Reason Not es Effectiveness by by 14:39:56 Oxygen etCO2 2 l/min Getachewkarli Jones used for Nasal Lianna Turner RN procedure cannula 14:40:03 Lidocaine 2% added 20ml Getachew Chilel for local to vial Lianna Dsouza MD anesthetic field 14:40:08 Heparin Flush added 2 bags Getachew Chilel used for Bag to Lianna Dsouza MD procedure (1000units/500ml field NS) 14:40:18 0.9% NaCl I.V. 100 Getachew Buffie Per physician ml/hr Lianna Turner RN 14:53:48 Versed I.V. 2 mg Getachew Srie for sedation Lianna Turner RN 14:53:53 Fentanyl I.V. 100 mcg Getachew Srie for sedation Lianna Turner RN 14:55:19 Radial Cocktail added 1 Getachew Chilel for (Verapomil to syringe Lianna Dsouza MD vasodilation 2mg/Nitro field 400mcg/Heparin 1500units) 14:58:00 Heparin Bolus I.V. 4000 Getachew Srie for prashant ified units Lianna Turner RN anticoagulation with dr dsouza 15:00:16 Versed I.V. 1 mg Getachew Srie for sedation Lianna Turner RN 15:00:20 Fentanyl I.V. 50 mcg Getachew Srie for sedation Lianna Turner RN 15:04:17 Versed I.V. 1 mg Getachew Srie for sedation Lianna Turner RN 15:04:20 Fentanyl I.V. 50 mcg Getachew Jones for sedation Lianna Turner RN Procedure Log Time Note 14:20:38 Rody Renteria RT(R) sent for patient. Start room use. 14:34:14 Diagnostic Cath Status : Elective 14:34:45 Time tracking: Regular hours (M-F 7:00 - 5:00) 14:34:49 Plan of Care:Hemodynamics will remain stable., Cardiac rhythm will remain stable., Comfort level will be maintained., Respiratory function will remain adequate., Patient/ family verbilizes understanding of procedure., Procedure tolerated without complication., Recovers from procedure without complications.. 14:34:55 Patient received from Pre/Post Procedure Room to CCL 2 Alert and oriented. Tansferred to table in Supine position. 14:34:56 Warm blankets applied, and zain hugger turned on for patient comfort. 14:34:56 Correct patient and procedure confirmed by team. 14:34:58 Signed procedure consent form obtained from patient. 14:34:59 ECG and BP/O2 sat monitors applied to patient. 14:35:00 Vital chart was started 14:35:03 Baseline sample Acquired. 14:35:05 Rhythm: sinus rhythm 14:35:07 Full Disclosure recording started 14:35:11 H&P Date Dictated: 03/14/2018 Within 30 days and on chart., H&P Addendum completed by physician on day of procedure. (MUST COMPLETE FOR ALL OUTPATIENTS). 14:35:13 Pre-procedure instructions explained to patient. 14:35:13 Pre-op teaching completed and patient verbalized understanding. 14:35:14 Family in waiting room. 14:35:16 Patient NPO since Midnight. 14:35:17 Is the patient allergic to Iodine/contrast media? No. 14:35:18 Was the patient premedicated? No 14:36:40 Is patient on blood thinner?Yes 14:36:44 ACC The patient was administered the following blood thiners within the last 24 hours: ACCPlavix 14:36:51 Patient diabetic? No. 14:36:57 Previous problem with sedation/anesthesia? No ? 14:36:58 Snore? Yes 14:37:00 Sleep apnea? No 14:37:01 Deviated septum? No 14:37:03 Opens mouth fully? Yes 14:37:04 Sticks out tongue? Yes 14:37:09 Airway obstruction? Yes copd 14:37:11 Dentures? No ? 14:37:16 Pre procedure: right dorsailis pedis pulse 2+ Normal; easily identifiable; not easily obliterated 14:37:19 Pre procedure: left dorsailis pedis pulse 2+ Normal; easily identifiable; not easily obliterated 14:38:49 Patient pain scale 0/10 ?. 14:38:57 IV patent on arrival in left forearm with 0.9% NaCl at O. 14:38:59 Lab results completed and on chart. 14:39:03 Right Radial & Right Groin area was prepped with chlora-prep and draped in sterile fashion 14:39:04 Alarms reviewed by Kerry Law 14:39:04 Sharps counted by scrub and verified by R.N. 14:39:41 Use device set Radial Dx or PCI 14:39:43 ACIST Syringe (74001) opened to sterile field. 14:39:43 Medline Cath Pack ([id number]) opened to sterile field. 14:39:44 Bag Decanter (2002S) opened to sterile field. 14:39:44 DIAGNOSTIC WIRE .035 260cm J wire (867271) opened to sterile field. 14:39:45 ACIST Hand Control (00118) opened to sterile field. 14:39:45 ACIST Manifold (70391) opened to sterile field. 14:39:46 Tegaderm 4 x 4 (1626W) opened to sterile field. 14:39:46 MBrace Wrist Support ([id number]) opened to sterile field. 14:39:48 SHEATH 6FR Slender (55-7292) opened to sterile field. 14:39:56 Oxygen 2 l/min etCO2 Nasal cannula was administered by Robert Turner RN; used for procedure; 14:40:02 INFLATOR Merit BasixCompak (TQ2309) opened to sterile field. 14:40:03 Lidocaine 2% 20ml vial added to field was administered by Getachew Dsouza MD; for local anesthetic; 14:40:08 Heparin Flush Bag (1000units/500ml NS) 2 bags added to field was administered by Getachew Dsouza MD; used for procedure; 14:40:09 CHOICE PT Extra Support 182cm wire ([id number]) opened to sterile field. 14:40:18 0.9% NaCl 100 ml/hr I.V. was administered by Robert Turner RN; Per physician; 14:52:19 Physician arrived 14:52:19 --------ALL STOP TIME OUT------ 14:52:20 Final Timeout: patient, procedure, and site verified with staff and physician. All members of the team are in agreement. 14:52:22 Right Radial & Right Groin site verified by team. 14:52:24 Physical assessment completed. ASA score P 2 - A patient with mild systemic disease as per Getachew Dsouza MD. 14:52:27 Sedation plan: IV Moderate Sedation Medication:Versed, Fentanyl 14:53:07 Procedure started. 14:53:19 Local anesthetic to right radial artery with Lidocaine 2% by Getachew Dsouza MD.INITIAL ACCESS ONLY 14:53:44 A 6 Fr Short sheath was inserted into the Right Radial artery 14:53:48 Versed 2 mg I.V. was administered by Robert Turner RN; for sedation; 14:53:53 Fentanyl 100 mcg I.V. was administered by Robert Turner RN; for sedation; 14:54:26 GUIDE 6FR XBLAD 3.5 catheter ([id number]) opened to sterile field. 14:54:44 6 Fr xblad 3.5 guide catheter was inserted over the wire 14:55:19 Radial Cocktail (Verapomil 2mg/Nitro 400mcg/Heparin 1500units) 1 syringe added to field was administered by Getachew Dsouza MD; for vasodilation; 14:57:04 [place] Pauma Eagleye IVUS Catheter (85192U) opened to sterile field. 14:57:27 choice pt wire advanced. 14:57:28 Wire advanced across lesion. 14:57:31 IVUS catheter advanced over wire. 14:58:00 Heparin Bolus 4000 units I.V. was administered by Robert Turner RN; for anticoagulation; verified with dr dsouza 14:59:33 IVUS pass to LAD lesion performed. 15:00:16 Versed 1 mg I.V. was administered by Robert Turner RN; for sedation; 15:00:20 Fentanyl 50 mcg I.V. was administered by Robert Turner RN; for sedation; 15:00:32 IVUS catheter removed over wire. 15:00:47 Wire redirected to lcx. 15:03:34 Place stent Inflation Number: 1 A INTEGRITY RX 3.5 x 26 stent ([id number]) was prepped and advanced across the Mid CX. The stent was deployed at 13 STEVEN for 0:10 (min:sec). 15:04:17 Versed 1 mg I.V. was administered by Robert Turner RN; for sedation; 15:04:20 Fentanyl 50 mcg I.V. was administered by Robert Turner RN; for sedation; 15:04:22 Inflation number: 2 The stent balloon was then re-inflated across the Mid CX to 11 STEVEN for 0:10 (min:sec). 15:04:47 Stent catheter was removed intact over wire. 15:04:47 Wire removed. 15:04:49 Guide catheter removed. 15:04:52 TR BAND Standard ([id number]) opened to sterile field. 15:05:01 Sheath removed intact; hemostasis achieved with Mechanical Compression to the Right Radial artery. 15:05:04 Procedure ended.(Physican Out) 15:05:17 Fluoroscopy time 03.70 minutes. 15:05:20 Fluoroscopy dose: 620 mGy 15:05:20 Flurop Dose total: 620 15:05:27 Contrast amount:Isovue 300 82ml. 15:05:29 Sharps counted by scrub and verified by R.N. 15:05:32 TR band inflated with 10cc of air. 15:05:36 Post right radial artery:stable 15:05:44 Post Procedure Pulses reassessed and unchanged 15:05:51 Post procedure rhythm: unchanged. 15:05:53 Estimated blood loss: 5 ml 15:05:54 Post procedure instruction explained to patient.Patient verbalizes understanding. 15:05:55 Patient needs reinforcement of post procedure teaching. 15:06:16 Procedure type changed to Cath procedure, Diagnostic procedure, FFR/IVUS, Intra-Coronary IVUS Initial, PCI procedure, Coronary Stent, Coronary Stent Initial 15:06:17 Procedure and supply charges have been captured, reviewed, submitted and are correct. 15:06:21 Procedure Complication : No complications 15:06:30 Vital chart was stopped 15:06:30 See physician's report for complete and final results. 15:06:37 Report given to Pre/Post Procedure Room. 15:06:39 Patient transfered to Pre/Post Procedure Room with Stretcher. 15:06:42 Procedure ended. 15:06:42 Full Disclosure recording stopped 15:06:48 ACC-PCI Only Patient was given prescriptions, or instructed by Getachew Dsouza MD to start/continue the following medications upon discharge: Plavix 15:06:49 End room use (Document Last) Intervention Summary Intervention Notes Time ActionType Lesion and Equipment Action# Pressure Duration Attributes Used 15:03:34 Place stent Mid CX INTEGRITY RX 1 13 00:10 3.5 x 26 stent ([id number]) 15:04:22 Reinflate Mid CX INTEGRITY RX 2 11 00:10 stent 3.5 x 26 balloon stent ([id number]) Device Usage Item Name Manufacture Quantity Catalog Number Hospital Part Current Mini mal Lot# / Charge Number Stock Stock Serial# Code ACIST Acist 1 15911 730586 035764 748320 20 Syringe Medical (27752) Systems Inc Medline Cath Medline 1 [id number] 013366 33579 280003 5 Pack ([id number]) Bag Decanter Microtek 1 2001S 558126 81870 795283 5 (2001S) Medical Inc. DIAGNOSTIC St [place] 1 557071 338953 294488 671795 30 WIRE .035 260cm J wire (747050) ACIST Hand Acist 1 19774 740495 184169 259738 5 Control Medical (34140) Systems Inc ACIST Acist 1 80497 570020 811750 853072 5 Manifold Medical (55831) Systems Inc Tegaderm 4 x 3M 1 1626W 383413 086656 921368 5 4 (1626W) MBrace Wrist Advanced 1 140-0250-00 846541 73435 644196 5 Support Vascular (086366812) Dynamics SHEATH 6FR Terumo 1 [id number] 398387 479689 011253 5 Slender (80-1060) INFLATOR Merit 1 YA0202 914851 262703 203940 15 [facility] [facility] Medical BasixCompak (VP0261) CHOICE PT [place] 1 [id number] 199746 781856 773798 5 Extra Scientific Support 182cm wire (5556855A0) GUIDE 6FR Cardinal 1 [id number] 095987 006074 655112 10 XBLAD 3.5 Health catheter (20193835) [place] 1 68892V 431520 197448 002350 8 Pauma Eagleye IVUS Catheter (13028Y) INTEGRITY RX Medtronic 1 [id number] 425999 870938 592784 5 [id number] 3.5 x 26 stent ([id number]) TR BAND Terumo 1 [id number] 377500 898368 288596 40 Standard ([id number]) Signature Audit [place] Stage Time Signature Unsigned Intra-Procedure 03/14/2018 Ivis Mauricio 3:11:25 PM RT(R) Signatures Monitor : Ivis Mauricio RT Signature : Date : Time : [place] [address] [place] [address]
[~2018-03-14 09:06] MED LIST changes: +BETAPACE 80 MG80 MG PO; +LOSARTAN-HCTZ1 EAC2 PO; +PLAVIX75 MG PO
[2018-03-14 09:55] VITALS: BP 136/81; Ht 175.3 cm; Wt 74.1 kg
[2018-03-14 10:11] LABS: BASOPHILS 0.3 % (0-2); EOSINOPHILS 2.2 % (0-7); HEMATOCRIT 41.5 % (42.0-54.0); HEMOGLOBIN 14.8 g/dL (13.5-17.5); IMMATURE GRANULOCYTES 0.3 % (0-5); LYMPHOCYTES 7.2 % (15-50); MCHC 35.7 g/dL (31.0-37.0); MCV 89.8 fL (80.0-100.0); MEAN PLATELET VOLUME 9.1 fL (7.4-10.4); MONOCYTES 7.9 % (2-11); NEUTROPHILS 82.1 % (40-80); PLATELET COUNT 269 10x3/uL (130-400); RBC 4.62 10x6/uL (4.20-6.10); WBC 15.1 10x3/uL (4.8-10.8)
[2018-03-14 10:19] LABS: CALC OSMOLALITY 281 mosm/kg (275-300); CALCIUM 9.2 mg/dL (8.5-10.1); CARBON DIOXIDE 25.1 mmol/L (21.0-32.0); CHLORIDE - SERUM 105 mmol/L (98-107); CREATININE - SERUM 0.7 mg/dL (0.6-1.3); GLUCOSE 93 mg/dL (74-106); POTASSIUM - SERUM 3.8 mmol/L (3.5-5.1); SODIUM 141 mmol/L (136-145); UREA NITROGEN 15 mg/dL (7-18); eGFR NON AFRICAN AMERICAN > 90 mL/min (90-120)
--- NOTE | 2018-03-17 14:36 | OP ---
PATIENT NAME: MELITON COCHRAN JR MEDICAL RECORD: [id number] :55 LOCATION:D[facility] ADMISSION DATE: SURGEON: TRACY STILES MD DATE OF OPERATION: 03/14/2018 PROCEDURES: 1. PTCA stent left circumflex. 2. Intravascular ultrasound of the LAD. 3. Selective coronary angiography. INDICATION: Angina and coronary artery disease. PROCEDURE IN DETAIL: After informed consent was obtained and after a detailed description of risks, benefits as well as alternative therapies, the patient elected to proceed with angiogram and angioplasty. The right radial area was prepped and draped in normal sterile fashion. Right radial artery was cannulated via modified Seldinger technique with placement of 6-Israeli sheath. All catheters exchanged through this sheath. FINDINGS: The left circumflex has 75% stenosis mid vessel. This was addressed with a 3.5 x 26 mm Integrity stent. The left anterior descending underwent intravascular ultrasound revealing no stenosis greater than 50%. OVERALL IMPRESSION: Successful percutaneous transluminal angioplasty stent of the left circumflex going from 75% initial stenosis to 0% residual. TRANSINT:[id number] Voice Confirmation ID: [id number] DOCUMENT ID: [id number] TRACY STILES MD at 1436 CC: [id number] DICTATION DATE: 03/14/18 1508 FUR NAILER: 03/14/18 2246 DEP CLI 03/14/[address] [address]
== END 2018-03-14 19:00 | disposition home or self-care (01) ==
LOC: D.CATH 09:06
PROVIDERS: Internal Medicine Interventional Cardiology
DX: I25.119 Atherosclerotic heart disease of native coronary artery with unspecified angina pectoris (principal); Z01.812 Encounter for preprocedural laboratory examination

== ENCOUNTER 2018-03-23 13:22 | Emergency (ER) | payer BC ==
[~2018-03-23] VITALS: Ht 175.3 cm; Wt 72.8 kg
[2018-03-23 13:45] VITALS: Ht 175.3 cm; Wt 72.8 kg
[2018-03-23 14:09] LABS: BASOPHILS 0.6 % (0-2); HEMATOCRIT 44.2 % (42.0-54.0); HEMOGLOBIN 15.3 g/dL (13.5-17.5); IMMATURE GRANULOCYTES 0.3 % (0-5); LYMPHOCYTES 18.1 % (15-50); MCH 31.7 pg (26.0-34.0); MCHC 34.6 g/dL (31.0-37.0); MCV 91.5 fL (80.0-100.0); MEAN PLATELET VOLUME 9.1 fL (7.4-10.4); MONOCYTES 11.7 % (2-11); NEUTROPHILS 64.3 % (40-80); PLATELET COUNT 292 10x3/uL (130-400); RBC 4.83 10x6/uL (4.20-6.10); RDW 12.8 % (11.5-14.5); WBC 8.8 10x3/uL (4.8-10.8)
[2018-03-23 14:17] LABS: INR 1.04 (0.85-1.17); PROTIME 13.1 SECONDS (11.6-15.0)
[2018-03-23 14:18] LABS: D-DIMER-QUANTITATIVE < 0.27 ug/mLFEU (0.20-0.54)
[2018-03-23 14:21] LABS: ALBUMIN 3.8 g/dL (3.4-5.0); ALKALINE PHOSPHATASE 81 U/L (46-116); ALT (SGPT) 16 U/L (10-68); BILIRUBIN - TOTAL 0.24 mg/dL (0.2-1.3); CALC OSMOLALITY 280 mosm/kg (275-300); CARBON DIOXIDE 26.6 mmol/L (21.0-32.0); CHLORIDE - SERUM 104 mmol/L (98-107); CREATININE - SERUM 0.8 mg/dL (0.6-1.3); GLUCOSE 120 mg/dL (74-106); POTASSIUM - SERUM 3.3 mmol/L (3.5-5.1); PROTEIN - SERUM 7.6 g/dL (6.4-8.2); SODIUM 140 mmol/L (136-145); UREA NITROGEN 15 mg/dL (7-18); eGFR NON AFRICAN AMERICAN > 90 mL/min (90-120)
[2018-03-23 14:33] LABS: TROPONIN-I < 0.017 ng/mL (0.000-0.060)
[2018-03-23 15:29] VITALS: BP 118/68
== END 2018-03-23 17:46 | disposition home or self-care (01) ==
LOC: D.ER 13:22
PROVIDERS: Family Medicine
DX: R00.2 Palpitations (principal); I45.10 Unspecified right bundle-branch block

== ENCOUNTER → 2018-06-24 11:30 | Outpatient (CLI) | payer BC ==
[2018-03-23 13:45] VITALS: BMI 23.7
--- NOTE | 2018-06-27 15:12 | EC ---
PATIENT:MELITON COCHRAN JR DATE OF SERVICE: 06/24/18 SEX: M MEDICAL RECORD: [id number] DATE OF : 55 [facility] AGE OF PATIENT: 62 ADMISSION DATE: 06/24/18 REFERRING PHYSICIAN: INTERPRETING PHYSICIAN: TRACY DSOUZA MD ECHOCARDIOGRAM REPORT ECHO CHARGES 4 ECHO COMPLETE Date: 06/24/18 CLINICAL DIAGNOSIS: MITRAL REGURG ECHOCARDIOGRAPHIC MEASUREMENTS (adult normal given) AC root (d.<3.7cm) 3.6 cm LV Septum d (<1.2 cm> 1.1 cm Valve Excursion 1.9 cm LV Septum (systole) 1.4 cm Left Atria (s.<4.0cm> 2.9 cm LVPW d(<1.2cm) 1.2 cm RV (d.<2.3cm) 3.9 cm LVPW (sytole) 1.4 cm LV diastole(<5.6CM) 4.3 cm MV E-F(>70mm/sec) cm LV systole 2.9 cm LVOT Diameter 1.8 cm MV exc.(>10mm) 1.6 cm Est.ejection fraction (50-75%) % DOPPLER: LVIT cm/sec A 67.0 cm/sec E 80.0 cm/sec LA cm/sec RVSP 30 mmHg LVOT 116 cm/sec AOP1/2T m/s Asc. Ao 139 cm/sec RVOT cm/sec RA cm/sec PA cm/sec AV Gradient Peak 7.68 mmHg AV Mean 3.87 mmHg AV Area 2.2 cm MV Gradient Peak 5.39 mmHg MV Mean 2.96 mmHg MV Area cm COMMENTS: Neurodiagnostic Technician: Isaac LEZAMA Forest Management Professor: 1 Dr. Dsouza TAPE# PACS Pericardial Effusion N DATE OF SERVICE: 06/24/2018 PROCEDURE: Echocardiogram. FINDINGS: 1. Left ventricular chamber size is within normal limits. Left ventricular systolic function is normal. Overall ejection fraction estimated at 55%. 2. Left atrium, right atrium, and right ventricular chamber sizes are within normal limits. 3. Valvular structures have normal structure and motion. ECHOCARDIOGRAM REPORT [id number] MELITON COCHRANALLISON GARZA 4. Doppler interrogation reveals mild tricuspid regurgitation, no other valvular insufficiency or stenosis. Pulmonary systolic pressure is normal estimated 33 mmHg. 5. No evidence of pericardial effusion or left ventricular thrombus. TRANSINT:[id number] Voice Confirmation ID: [id number] DOCUMENT ID: [id number] TRACY DSOUZA MD at 1512 CC: [id number] DICTATION DATE: 06/25/18 1126 MANAGER OF ORGANIZATIONAL DEVELOPMENT: 06/25/18 1232 DEP CLI 06/24/18 [place] [id number] [place] [id number]
== END | disposition home or self-care (01) ==
LOC: D.HCCARDIO 11:30
PROVIDERS: ATTEND Internal Medicine Interventional Cardiology
DX: I34.0 Nonrheumatic mitral (valve) insufficiency (principal)

== ENCOUNTER 2018-07-03 10:21 | Observation (INO) | payer BC ==
[~2018-07-03] VITALS: Ht 175.3 cm; Wt 72.7 kg
--- NOTE | ~2018-07-03 | HEMODYNAMI ---
PATIENT:MELITON COCHRAN JR MEDICAL RECORD: [id number] : 55 LOCATION:[facility] D.E11- [facility]# [id number] ADMISSION DATE: 07/03/18 Generatedon:07/03/201815:43 Patient name: MELITON COCHRAN Patient #: [id number] SSN: : Date of study: 07/03/2018 Page: Of Hemodynamic Procedure Report Patient Data Patient Demographics Procedure consent was obtained First Name: MELITON Gender: Male Last Name: SAMMIE Suffix: Jr Farmer Initial: JESENIA : 1955 Patient #: [id number] Age: 62 year(s) Race: Unknown Additional ID: [id number] Contact details [address]: [address] [place] [address] State: [place] City: [place] Zip code: [address] Past Medical History Allergies Allergen Reaction Date Comments Reported Other allergy 03/12/2018 AMLODIPINE, ENALAPRIL Other allergy 07/03/2018 AMLODIPINE, ENALAPRIL Admission Admission Data Admission Date: 07/03/2018 Admission Time: 11:42 Room #: D.E11 Height (in.): 69 BSA: 1.88 (m2) Height (cm.): 175.26 BMI: 23.63 (kg/m2) Weight (lbs.): 160 Weight (kg.): 72.57 Procedure Procedure Types Cath Procedure Diagnostic Procedure LHC LH w/Coronaries PCI Procedure Coronary Stent Coronary Stent Initial Procedure Description Procedure Date Procedure Date: 07/03/2018 Procedure Start Time: 15:21 Procedure End Time: 15:43 Procedure Staff Name Function Getachew Dsouza MD Performing Physician Raad Santana RT Monitor Ly Major RT Scrub Stefanie Jackson RN Nurse Procedure Data Cath Procedure Fluoroscopy Diagnostic fluoroscopy Total fluoroscopy Time: 4.4 time: 4.4 min min Diagnostic fluoroscopy Total fluoroscopy dose: 580 dose: 580 mGy mGy Contrast Material Contrast Material Type Amount (ml) Isovue 300 63 Entry Location Entry Primary Successful Side Size Upsize Upsize Entry Closure Ayala ccessful Closure Location (Fr) 1 (Fr) 2 (Fr) Remarks Device Remarks Radial Right 6 Fr Mechanical artery Short Compression Estimated blood loss: 10 ml Diagnostic catheters Device Type Used For End Catheter Placement DIAGNOSTIC [place] 110cm 5 Procedure Fr catheter ([id number]) Procedure Complications No complications Procedure Medications Medication Administration Route Dosage 0.9% NaCl I.V. 100 ml/hr Oxygen etCO2 Nasal cannula 2 l/min Lidocaine 2% added to field 20 Heparin Flush Bag added to field 2 bags (1000units/500ml NS) Radial Cocktail added to field 1 syringe (Verapomil 2mg/Nitro 400mcg/Heparin 1500units) Versed I.V. 2 mg Fentanyl I.V. 50 mcg Versed I.V. 2 mg Fentanyl I.V. 50 mcg Heparin Bolus I.V. 4000 units Nitroglycerin IC/IA I.C. 200 mcg Hemodynamics Rest BSA: 1.88 (m2) O2 Consumption: Estimated: 213.97 (ml/min) O2 Consumption indexed : Estimated:113.81 (ml/min/m) Heart Rate: 61 (bpm) Snapshots Pre Cath Intra NCS Post Cath Vital Signs Time Heart Resp SPO2 etCO2 NIBP (mmHg) Rhythm Pain Sedation Rate (ipm) (%) (mmHg) Status Level (bpm) 15:04:41 52 17 100 35.5 144/72(98) NSR 0 (11) 10(A) , No pain 15:08:57 60 15 99 29.6 126/74(107) NSR 0 (11) 10(A) , No pain 15:13:11 62 13 98 30 116/72(86) NSR 0 (11) 10(A) , No pain 15:17:27 60 12 98 16.2 119/65(99) NSR 0 (11) 10(A) , No pain 15:21:39 56 13 96 0 117/69(81) NSR 0 (11) 10(A) , No pain 15:25:53 55 15 95 0 99/57(70) NSR 0 (11) 9(A) , No pain 15:30:05 54 14 96 0.7 103/55(80) NSR 0 (11) 9(A) , No pain 15:34:17 52 13 97 0 111/61(74) NSR 0 (11) 9(A) , No pain 15:38:33 51 15 97 19.2 103/55(77) NSR 0 (11) 10(A) , No pain 15:42:47 52 13 98 0 103/55(73) NSR 0 (11) 10(A) , No pain Medications Time Medication Route Dose Verified Delivered Reason Not es Effectiveness by by 15:03:39 0.9% NaCl I.V. 100 Getachew Stefanie used for ml/hr Lianna Jackson sap trainer 15:03:45 Oxygen etCO2 2 l/min Getachew Stefanie used for Nasal Lianna Jackson procedure cannula RN 15:03:50 Lidocaine 2% added 20ml Getachew Getachew for local to vial Lianna Dsouza MD anesthetic field 15:03:54 Heparin Flush added 2 bags Getachew Getachew used for Bag to Lianna Dsouza MD procedure (1000units/500ml field NS) 15:03:59 Radial Cocktail added 1 Getachew Getachew used for (Verapomil to syringe Lianna Dsouza MD procedure 2mg/Nitro field 400mcg/Heparin 1500units) 15:19:52 Versed I.V. 2 mg Getachew Stefanie for sedation Lianna Jackson RN 15:20:01 Fentanyl I.V. 50 mcg Getachew Stefanie for sedation Lianna Jackson RN 15:24:14 Versed I.V. 2 mg Getachew Stefanie for sedation Lianna Jackson RN 15:24:21 Fentanyl I.V. 50 mcg Getachew Stefanie for sedation Lianna Jackson RN 15:27:28 Heparin Bolus I.V. 4000 Getachew Stefanie for prashant ified units Lianna Jackson anticoagulation with Dr. JUAN JOSÉ Dsouza 15:36:00 Nitroglycerin I.C. 200 mcg Getachew Chilel for IC/IA Lianna Dsouza MD vasodilation Procedure Log Time Note 14:41:16 Signed procedure consent form obtained from patient. 14:41:18 Diagnostic Cath status Elective 14:41:18 Time tracking: Regular hours (M-F 7:00 - 5:00) 14:41:21 Plan of Care:Hemodynamics will remain stable., Cardiac rhythm will remain stable., Comfort level will be maintained., Respiratory function will remain adequate., Patient/ family verbilizes understanding of procedure., Procedure tolerated without complication., Recovers from procedure without complications.. 14:41:23 Stefanie Jackson RN sent for patient. Start room use. 14:41:29 H&P Date Dictated: 07/03/2018 ER History on chart.. 14:41:49 Patient allergic to Other allergyAMLODIPINE, ENALAPRIL 14:42:02 Patient Weight : 160 lbs 14:42:05 Patient Height : 69 inches 14:50:43 Patient received from ED to CCL 1 Alert and oriented. Tansferred to table in Supine position. 14:50:45 Correct patient and procedure confirmed by team. 14:50:45 Warm blankets applied, and zain hugger turned on for patient comfort. 14:50:46 ECG and BP/O2 sat monitors applied to patient. 15:03:31 Vital chart was started 15:03:39 0.9% NaCl 100 ml/hr I.V. was administered by Stefanie Jackson RN; used for procedure; 15:03:45 Oxygen 2 l/min etCO2 Nasal cannula was administered by Stefanie Jackson RN; used for procedure; 15:03:50 Lidocaine 2% 20ml vial added to field was administered by Getachew Dsouza MD; for local anesthetic; 15:03:54 Heparin Flush Bag (1000units/500ml NS) 2 bags added to field was administered by Getachew Dsouza MD; used for procedure; 15:03:59 Radial Cocktail (Verapomil 2mg/Nitro 400mcg/Heparin 1500units) 1 syringe added to field was administered by Getachew Dsouza MD; used for procedure; 15:08:59 Baseline sample Acquired. 15:09:03 Rhythm: sinus rhythm 15:09:07 Full Disclosure recording started 15:09:42 Pre-procedure instructions explained to patient. 15:09:42 Pre-op teaching completed and patient verbalized understanding. 15:09:44 Family in waiting room. 15:09:46 Patient NPO since Midnight. 15:10:04 Is the patient allergic to Iodine/contrast media? No. 15:10:13 Is patient on blood thinner?Yes 15:10:20 ACC The patient was administered the following blood thiners within the last 24 hours: ACCPlavix 15:10:40 Patient diabetic? No. 15:10:44 Previous problem with sedation/anesthesia? No ? 15:10:48 Snore? Yes 15:10:50 Sleep apnea? No 15:10:52 Deviated septum? No 15:10:53 Opens mouth fully? Yes 15:10:56 Sticks out tongue? Yes 15:10:58 Airway obstruction? Yes COPD 15:11:04 Dentures? No ? 15:11:25 Pre procedure: right dorsailis pedis pulse 1+ Palpable, but thready & weak; easily obliterated 15:11:28 Modified Bassam's test Ulnar < 7 seconds 15:11:34 Patient pain scale 0/10 ?. 15:12:02 IV patent on arrival in right wrist with 0.9% NaCl at KVO. 15:12:54 Pt requested IV be resited so the procedure could be done through the radial. 15:13:06 IV started by Stefanie Jackson RN inleft hand with a 22 gauge IV catheter with 0.9% NaCl at KVO. 15:13:09 Lab results completed and on chart. 15:13:12 Right Radial & Right Groin area was prepped with chlora-prep and draped in sterile fashion 15:13:12 Alarms reviewed by R. N. 15:13:13 Sharps counted by scrub and verified by R.N. 15:14:50 Use device set Radial Dx or PCI 15:14:52 Tegaderm 4 x 4 (1626W) opened to sterile field. 15:14:53 ACIST Manifold (39253) opened to sterile field. 15:14:53 ACIST Hand Control (09495) opened to sterile field. 15:14:55 ACIST Syringe (54273) opened to sterile field. 15:14:56 Medline Cath Pack ([id number]) opened to sterile field. 15:14:59 Bag Decanter () opened to sterile field. 15:15:00 DIAGNOSTIC WIRE .035 260cm J wire (896092) opened to sterile field. 15:15:00 MBrace Wrist Support ([id number]) opened to sterile field. 15:15:02 SHEATH 6FR Slender (35-1288) opened to sterile field. 15:19:13 --------ALL STOP TIME OUT------ 15:19:13 Final Timeout: patient, procedure, and site verified with staff and physician. All members of the team are in agreement. 15:19:16 Right Radial & Right Groin site verified by team. 15:19:19 Maximum allowable Isovue 300 dose 300ml. Physician notified. (300ml for normal creatinines. For patients with creatinine of 1.7 or higher multiply weight(kg) x 5 divided by creatinine.) 15::24 Fire Safety Assessment: A--An alcohol-based skin anteseptic being used preoperatively., C--Open oxygen or nitrous oxide is being used., D--An ESU, laser, or fiber-optic light is being used. 15:: Physical assessment completed. ASA score P 2 - A patient with mild systemic disease as per Getachew Dsouza MD. 15::29 Sedation plan: IV Moderate Sedation Medication:Versed, Fentanyl 15::52 Versed 2 mg I.V. was administered by Stefanie Jackson RN; for sedation; 15:20:01 Fentanyl 50 mcg I.V. was administered by Stefanie Jackson RN; for sedation; 15:21:03 IV CATHETER 22g opened to sterile field. 15:21:45 Procedure started. 15:21:51 Local anesthetic to right radial artery with Lidocaine 2% by Getachew Dsouza MD.INITIAL ACCESS ONLY 15:23:18 A 6 Fr Short sheath was inserted into the Right Radial artery 15:24:14 Versed 2 mg I.V. was administered by Stefanie Jackson RN; for sedation; 15:24:16 A DIAGNOSTIC [place] 110cm 5 Fr catheter (063062) was advanced over the wire and used for Procedure. 15:24:19 LV angiography performed. 15:24:20 LV gram done using MEDINA 15::21 Fentanyl 50 mcg I.V. was administered by Stefanie Jackson RN; for sedation; 15:24:32 EF : 50 % 15::36 Injector settings: Ml/sec: 7, Volume: 15, 15:25:06 LCA angiography performed. 15:25:33 Use device set [facility] PCI 15::52 CHOICE PT Extra Support 182cm wire ([id number]) opened to sterile field. 15:26:03 INFLATOR Merit BasixCompak (GD0356) opened to sterile field. 15:26:09 RCA angiography performed. 15:26:26 Catheter exchanged over wire. 15:27:28 Heparin Bolus 4000 units I.V. was administered by Stefanie Jackson RN; for anticoagulation; verified with Dr. Dsouza 15:27:29 GUIDE 6FR XBLAD 3.5 catheter ([id number]) opened to sterile field. 15:27:49 6 Fr XBLAD 3.5 guide catheter was inserted over the wire 15:27:58 CPTXS wire advanced. 15:28:17 Wire advanced across lesion. 15:29:25 Inflate balloon Inflation number: 1 A EUPHORA 2.5 x 30 Balloon ([id number]) was prepped and advanced across the Mid CX, then inflated to 15 STEVEN for 0:10 (min:sec). 15:29:31 Inflation number: 2 The EUPHORA 2.5 x 30 Balloon ([id number]) was reinflated across the Mid CX, to 19 STEVEN for 0:10 (min:sec). 15:29:50 Multiple inflations made at 19 Atms. 15:30:21 Balloon removed over the wire. 15:31:59 Place stent Inflation Number: 3 A SHASHANK RX 2.75 x 34 stent ([id number]) was prepped and advanced across the Mid CX. The stent was deployed at 17 STEVEN for 0:10 (min:sec). 15:35:26 Stent catheter was removed intact over wire. 15:36:00 Nitroglycerin IC/IA 200 mcg I.C. was administered by Getachew Dsouza MD; for vasodilation; 15:36:16 Place stent Inflation Number: 4 A SHASHANK RX 3.0 x 15 stent ([id number]) was prepped and advanced across the Mid CX. The stent was deployed at 15 STEVEN for 0:10 (min:sec). 15:36:48 Stent catheter was removed intact over wire. 15:36:49 Wire removed. 15:36:49 Guide catheter removed. 15:37:35 TR BAND Standard ([id number]) opened to sterile field. 15:37:49 Sheath removed intact; hemostasis achieved with Mechanical Compression to the Right Radial artery. 15:41:53 Procedure ended.(Physican Out) 15:41:58 Fluoroscopy time 04.40 minutes. 15:42:09 Flurop Dose total: 580 15:42:09 Fluoroscopy dose: 580 mGy 15:42:14 Contrast amount:Isovue 300 63ml. 15:42:15 Sharps counted by scrub and verified by R.N. 15:42:17 Insertion/operative site no bleeding no hematoma. 15:42:19 TR band inflated with 12cc of air. 15:42:21 Post Procedure Pulses reassessed and unchanged 15:42:25 Post-procedure physical assessment completed. ASA score P 2 - A patient with mild systemic disease as per Getachew Dsouza MD. 15:42:27 Post procedure rhythm: unchanged. 15:42:29 Estimated blood loss: 10 ml 15:42:31 Post procedure instruction explained to patient.Patient verbalizes understanding. 15:42:32 Patient needs reinforcement of post procedure teaching. 15:42:44 Procedure type changed to Cath procedure, Diagnostic procedure, LHC, LHC w/Coronaries, PCI procedure, Coronary Stent, Coronary Stent Initial 15:42:46 Procedure and supply charges have been captured, reviewed, submitted and are correct. 15:42:49 Procedure Complication : No complications 15:43:17 Vital chart was stopped 15:43:17 See physician's report for complete and final results. 15:43:20 Report given to PCU. 15:43:22 Patient transfered to PCU with Bed. 15:43:24 Procedure ended. 15:43:24 Full Disclosure recording stopped 15:43:29 End room use (Document Last) Intervention Summary Intervention Notes Time ActionType Lesion and Equipment Used Action# Pressure Duration Attributes 15:29:25 Inflate Mid CX EUPHORA 2.5 x 1 15 00:10 balloon 30 Balloon ([id number]) 15:29:31 Reinflate Mid CX EUPHORA 2.5 x 2 19 00:10 balloon 30 Balloon ([id number]) 15:31:59 Place stent Mid CX SHASHANK RX 2.75 x 3 17 00:10 34 stent ([id number]) 15:36:16 Place stent Mid CX SHASHANK RX 3.0 x 4 15 00:10 15 stent ([id number]) Device Usage Item Name Manufacture Quantity Catalog Number Hospital Part Current M inimal Lot# / Charge Number Stock Stock Serial# Code Tegaderm 4 x 4 3M 1 [id number] 248339 130325 388100 5 (1626W) ACIST Manifold Acist 1 88401 087219 829700 093924 5 (25893) Medical Systems Inc ACIST Hand Acist 1 24035 148271 848045 156249 5 Control Medical (58725) Systems Inc ACIST Syringe Acist 1 83528 016467 311009 734040 2 0 (26113) Medical Systems Inc Medline Cath Medline 1 [id number] 820087 66331 746435 5 Pack ([id number]) Bag Decanter Microtek 1 2001S 220592 82097 674002 5 () Medical Inc. DIAGNOSTIC [facility] [place] 1 350772 228103 867211 333148 3 0 WIRE .035 260cm J wire (619708) MBrace Wrist Advanced 1 140-0250-00 213822 18935 653693 5 Support Vascular (487153515) Dynamics SHEATH 6FR Terumo 1 [id number] 422744 195352 992228 5 Slender (80-1060) IV CATHETER B. Adams 1 [id number] 569579 705638 252436 5 22g DIAGNOSTIC Terumo 1 40-4143 434613 818875 807492 5 [place] 110cm 5 Fr catheter (926543) CHOICE PT Mcbee 1 [id number] 747824 177294 018285 5 Extra Support Scientific 182cm wire (8825411V6) INFLATOR Merit Merit 1 DE2509 317166 911603 670759 1 5 [facility] (AA4008) GUIDE 6FR Cardinal 1 [id number] 689511 913972 206509 1 0 XBLAD 3.5 Health catheter (71086808) EUPHORA 2.5 x Medtronic 1 [id number] 212813 006942 750599 5 [id number] 30 Balloon ([id number]) SHASHANK RX 2.75 x Medtronic 1 [id number] 795634 2680710 120174 5 [id number] 34 stent ([id number]) SHASHANK RX 3.0 x Medtronic 1 [id number] 451717 5671263 148166 5 [id number] 15 stent ([id number]) TR BAND Terumo 1 [id number] 943813 280873 055309 4 0 Standard ([id number]) Signature Audit Linch Stage Time Signature Unsigned Intra-Procedure 07/03/2018 Raad Santana 3:43:43 PM RT(R) Signatures Monitor : Raad Santana RT Signature : Date : Time : [address] [place] [address]
--- NOTE | ~2018-07-03 | DS ---
PATIENT:MELITON ARMIJO JR :55 MEDICAL RECORD: [id number] DISCHARGE SUMMARY ADMISSION DATE: 07/03/18 DISCHARGE DATE: 07/04/18 DISCHARGE DIAGNOSES: 1. Angina. 2. Coronary artery disease. 3. Percutaneous transluminal coronary angioplasty stent of left circumflex this admission. 4. Hypertension. 5. Hyperlipidemia. HOSPITAL COURSE: Mr. Armijo presents with anginal symptomatology, found to have critical disease of the circumflex, underwent successful PTCA stent circumflex, was discharged home with no change in his medications as he is already on aspirin and Plavix. Follow up with [facility] in 1 month. TRANSINT:[id number] Voice Confirmation ID: [id number] DOCUMENT ID: [id number] TRACY STILES MD CC: [id number] DICTATION DATE: 07/04/18905 CARTRIDGE MAKER: 07/05/18 024 DIS IN 07/04/18 [facility] [address] [place] [address]
--- NOTE | ~2018-07-03 | OP ---
PATIENT NAME: MELITON COHCRAN JR MEDICAL RECORD: [id number] :55 LOCATION:D.M2 D.2115 ADMISSION DATE:07/03/18 SURGEON: TRACY STILES MD DATE OF OPERATION: 07/03/2018 PROCEDURES: 1. PTCA stent left circumflex. 2. Left heart catheterization. 3. Selective coronary angiography. 4. Left ventriculogram. INDICATION: Angina and coronary artery disease. PROCEDURE IN DETAIL: After informed consent was obtained and after a detailed description of the risks, benefits as well as alternative therapies, the patient elected to proceed with angiogram and angioplasty. The right radial area was prepped and draped in normal sterile fashion. Right radial artery was cannulated via modified Seldinger technique with placement of 6-Argent[place] sheath. All catheters exchanged through this sheath. FINDINGS: Left ventriculogram was performed in standard 30-degree MEDINA view, reveals good cardiac wall motion throughout all segments. Overall ejection fraction preserved at 50%. SELECTIVE CORONARY ANGIOGRAPHY: 1. Left main is with no significant angiographic disease. 2. Left anterior descending has mild irregularities, but no flow-limiting stenosis. 3. The left circumflex has previously placed stent with 95% in-stent restenosis. 4. The right coronary has previously placed stent. This is widely patent with no significant restenosis. No disease elsewise throughout the RCA or its branches. PTCA STENT OF THE LEFT CIRCUMFLEX: The stent used was a 3.0 x 15 mm [place], as well as a 2.75 x 34 mm [place]. Result was 0% residual stenosis. OVERALL IMPRESSION: Successful PTCA stent of the left circumflex going from 95% initial stenosis to 0% residual. TRANSINT:[id number] Voice Confirmation ID: [id number] DOCUMENT ID: [id number] TRACY STILES MD CC: [id number] DICTATION DATE: 07/03/18 1542 NARROW FABRIC CALENDERER: 07/03/18 1739 ADM IN [place] [place] [address]
[2018-07-03 10:47] LABS: BASOPHILS 0.1 % (0-2); EOSINOPHILS 3.4 % (0-7); HEMATOCRIT 41.3 % (42.0-54.0); HEMOGLOBIN 14.4 g/dL (13.5-17.5); IMMATURE GRANULOCYTES 0.3 % (0-5); LYMPHOCYTES 7.2 % (15-50); MCHC 34.9 g/dL (31.0-37.0); MCV 88.8 fL (80.0-100.0); MEAN PLATELET VOLUME 9.1 fL (7.4-10.4); MONOCYTES 5.7 % (2-11); NEUTROPHILS 83.3 % (40-80); PLATELET COUNT 229 10x3/uL (130-400); RBC 4.65 10x6/uL (4.20-6.10); RDW 13.1 % (11.5-14.5); WBC 9.5 10x3/uL (4.8-10.8)
[2018-07-03 10:59] LABS: APTT 29.6 SECONDS (22.8-39.4); INR 1.06 (0.85-1.17); PROTIME 13.3 SECONDS (11.6-15.0)
[2018-07-03 11:08] LABS: ALBUMIN 3.6 g/dL (3.4-5.0); ALKALINE PHOSPHATASE 73 U/L (46-116); ALT (SGPT) 16 U/L (10-68); BILIRUBIN - TOTAL 0.37 mg/dL (0.2-1.3); CALC OSMOLALITY 279 mosm/kg (275-300); CALCIUM 9.4 mg/dL (8.5-10.1); CHLORIDE - SERUM 104 mmol/L (98-107); CREATININE - SERUM 0.8 mg/dL (0.6-1.3); GLUCOSE 125 mg/dL (74-106); PROTEIN - SERUM 7.2 g/dL (6.4-8.2); SODIUM 139 mmol/L (136-145); UREA NITROGEN 15 mg/dL (7-18); eGFR NON AFRICAN AMERICAN > 90 mL/min (90-120)
[2018-07-03 11:20] LABS: CKMB 56.7 U/L (0.0-3.6); CREATINE KINASE 325 UL (21-232); MAGNESIUM - SERUM 1.9 mg/dL (1.8-2.4)
[2018-07-03 11:24] LABS: TROPONIN-I 3.972 ng/mL (0.000-0.060)
[2018-07-03 12:00] VITALS: BP 122/71
[2018-07-03 13:30] VITALS: BP 125/62
[2018-07-03] MEDS ORDERED: BETAPACE 80 MG80 MG PO (16:53)
[2018-07-03 16:54] VITALS: BP 96/60; Ht 175.3 cm; Wt 72.7 kg
[2018-07-03 20:00] VITALS: BP 96/55
[2018-07-04 04:00] VITALS: BP 116/72
--- NOTE | 2018-07-04 08:45 | MORECARE ---
CASE MANAGEMENT DISCHARGE SUMMARY PATIENT: MELITON COCHRAN JR UNIT: [id number] ADM DATE: 07/03/18 AGE: 62 : 55 SEX: M ROOM/BED: D.2115 AUTHOR: MUSTAPHA LEAL PHYSICIAN: REFERRING PHYSICIAN: TRACY STILES MD DATE OF SERVICE: 07/04/18 Discharge Plan Patient Name: MELITON COCHRAN [facility] [facility] 1955 Planned Disposition: Home Anticipated Discharge Date: 07/04/18 Discharge Date: Expected LOS: 1 Initial Reviewer: [email or web address] Initial Review Date: 07/04/2018 Generated: 07/04/18 9:44 am Patient Name: MELITON COCHRAN Page [phone] at 0845 All edits/amendments must be made on the electronic document DICTATION DATE: 07/04/1844 YARN WASHER: LEEROY 07/04/18 0844 RPT#: [id number] DC DATE: STATUS: ADM IN [facility] [address] [place] [address] END OF REPORT
[2018-07-04 08:49] VITALS: BP 125/69
== END 2018-07-04 10:28 | disposition home or self-care (01) ==
LOC: D.ER 10:21 → D.EDHOLD 11:42 → OBSVTIME 11:42 → D.M2 16:16
PROVIDERS: Emergency Medicine; ADMIT Internal Medicine Interventional Cardiology; ATTEND Internal Medicine Interventional Cardiology
DX: I21.4 Non-ST elevation (NSTEMI) myocardial infarction (principal); I10 Essential (primary) hypertension; I48.0 Paroxysmal atrial fibrillation; I25.110 Atherosclerotic heart disease of native coronary artery with unstable angina pectoris; E78.5 Hyperlipidemia, unspecified